=== PATIENT | male | born 1995 | race Hispanic/Latino ===

== ENCOUNTER 2018-01-04 14:26 | Emergency (ER) | payer OTHER ==
[2018-01-04] MEDS: NS 1,000 ML IV (15:15)
[2018-01-04] MEDS: ONDANSETRON 4MG/2ML VIAL (J2405) IV (15:15)
[2018-01-04 15:31] LABS: BASO % 0.6 % (0.0-1.0); EOS # 0.1 10^3/uL (0.0-0.50); IMMATURE GRANULOCYTE % 0.3 % (0-3.0); LYMPH # 1.4 10^3/uL (1.5-6.5); LYMPH % 21.9 % (24.0-44.0); MEAN CORPUSCULAR HEMOGLOBIN 33.5 pg (27.0-33.0); MEAN CORPUSCULAR HGB CONC 35.9 g/dl (32.0-36.5); MEAN CORPUSCULAR VOLUME 93.2 fl (80.0-96.0); MONO # 0.4 10^3/uL (0.0-0.8); MONO % 6.1 % (0.0-5.0); NEUTROPHILS # 4.6 10^3/uL (1.8-7.7); NEUTROPHILS % 69.1 % (36.0-66.0); PLATELET COUNT, AUTOMATED 261 10^3/uL (150-450); RED BLOOD COUNT 5.47 10^6/uL (4.30-6.10); WHITE BLOOD COUNT 6.6 10^3/uL (4.0-10.0)
[2018-01-04] MEDS: MORPHINE 4 MG/ML 1ML VIAL/SYRINGE (J2270) IV (15:32)
[2018-01-04 15:39] LABS: HEMOGLOBIN 18.3 g/dl (13.5-17.5); SUSPECT SAMPLE POS FLAG
[2018-01-04 15:54] LABS: ALBUMIN 4.4 GM/DL (3.2-5.2); ALBUMIN/GLOBULIN RATIO 1.16 (1.00-1.93); ALKALINE PHOSPHATASE 90 U/L (45-117); ALT/SGPT 66 U/L (12-78); ANION GAP 5 MEQ/L (8-16); AST/SGOT 35 U/L (7-37); BILIRUBIN,DIRECT 0.1 MG/DL (0.0-0.2); BILIRUBIN,TOTAL 0.6 MG/DL (0.2-1.0); BLOOD UREA NITROGEN 12 MG/DL (7-18); CARBON DIOXIDE LEVEL 29 MEQ/L (21-32); CHLORIDE LEVEL 107 MEQ/L (98-107); CREATININE FOR GFR 1.08 MG/DL (0.70-1.30); GLOMERULAR FILTRATION RATE > 60.0 (>60); GLUCOSE, FASTING 87 MG/DL (70-100); LIPASE 193 U/L (73-393); SODIUM LEVEL 141 MEQ/L (136-145); TOTAL PROTEIN 8.2 GM/DL (6.4-8.2)
[2018-01-04] MEDS ORDERED: ISOVUE-370 76% 100ML VIAL (Q9967) As Ordered (15:58)
== END 2018-01-04 17:26 | disposition home or self-care (01) ==
LOC: M ED 14:26
DX: A08.4 Viral intestinal infection, unspecified (principal)
CPT/HCPCS: J2270

== ENCOUNTER 2018-05-26 11:54 | Emergency (ER) | payer OTHER ==
[2018-05-26] MEDS: TETRACAINE 0.5% OPHTH SOLN 4ML OS (12:15)
[2018-05-26] MEDS: LISSAMINE GREEN OPHTH 1.5 MG STRIP OS (12:15)
[2018-05-26] MEDS: ERYTHROMYCIN OPHTH OINT OS (13:00)
[2018-05-26] MEDS: IBUPROFEN 600 MG TAB PO (13:00)
== END 2018-05-26 13:08 | disposition home or self-care (01) ==
LOC: M ED 11:54
DX: S05.02XA Injury of conjunctiva and corneal abrasion without foreign body, left eye, initial encounter (principal); X58.XXXA Exposure to other specified factors, initial encounter; Y92.89 Other specified places as the place of occurrence of the external cause; Z98.890 Other specified postprocedural states
CPT/HCPCS: 99283